=== PATIENT | male | born 1955 | race Caucasian/White ===

== ENCOUNTER → 2020-08-31 | Outpatient (CLI) | payer BC ==
--- NOTE | 2020-09-01 18:19 | CARD ---
MR#: [id number] Date of Study: 08/31/2020 Ordering Physician: NIKA BEE, Referring Physician: NIKA BEE, Tech: Yoanna Tobin, [facility] APPROVED REPORT INDICATION Chest Pain RISK FACTORS Hypertension Hyperlipidemia Smoking Reason : Patient complained of pain PROCEDURE The patient underwent an Exercise Stress Test using the Morgan Protocol. Blood pressure, heart rate, a nd EKG were monitored. An Echocardiogram was performed by certified pharmacy technician in four stages in quad fashion. At peak stress four se lected images were obtained and placed side by side with resting images for comparison. STRESS ECHO FINDINGS The resting Echocardiogram showed normal left ventricular systolic contractility with an estimated Ej ection Fraction of about 60 %. The Resting Echocardiogram showed normal augmentation of myocardial wall segments using a 16 segment model. The Stress Echocardiogram showed normal augmentation of myocardial wall segments using a 16 segment m zechariah. The Stress Echocardiogram left ventricular systolic contractility has an estimated Ejection Fraction of about 70%. Test Type: Exercise Stress Nurse/Tech: Katie Abebe R.N. Test Indications: c/p Cardiac History and Allergies: HTN,HLD,smoker, marijuana Medications: see ehr Medical History: see ehr Resting Heart Rate: 61 bpm Resting Blood Pressure: 148/86mmHg Pretest Chest Pain: No chest pain Nurse/Tech Notes S1S2, lungs CTA Stress Symptoms SOA w/ chest discomfort related to SOA according to patient- resolved once he stopped exercise POST EXERCISE Reason for Termination: Reached target heart rate Target HR: Yes Max HR: 161 bpm 103% of Maximum Predicted HR: 157 bpm Exercise duration: 5:00 min:sec, 2 Stage Exercise capacity: 7.0METs Max Blood Pressure: 208/100mmHg Blood Pressure response to exercise: Normal blood pressure response during stress. Heart Rate response to exercise: wnl Chest Pain: No. see above note Arrhythmia: No. INTERPRETATION Stress EKG Conclusion: The resting EKG shows a sinus rhythm with nonspecific ST-T wave changes. The stress EKG shows mild upsloping ST segment depression in the inferior and lateral leads that is s uggestive but not diagnostic of ischemia. Preliminary Notification Critical Value: No <Conclusion> Fair exercise tolerance to walk with the patient walking for 5 minutes on a Morgan protocol. Hypertensive blood pressure response to exertion. No reported chest pain with exertion. Mild upsloping ST depression in the inferior and lateral leads that is suggestive but not diagnostic of ischemia. Normal LV systolic function at rest. Normal LV systolic response to exertion with no regional wall motion abnormalities. Moderately low risk treadmill stress echo with no reported chest pain, suggestive but not diagnostic ischemic EKG changes and normal left ventricular response to exertion. Signed by : Rich Perez MD Electronically Approved : 09/01/2020 18:18:45
== END ==
LOC: ECHO 12:26
PROVIDERS: ATTEND Internal Medicine Cardiovascular Disease
DX: I10 Essential (primary) hypertension (principal); E78.5 Hyperlipidemia, unspecified; F17.200 Nicotine dependence, unspecified, uncomplicated
CPT/HCPCS: 93017; 93350